=== PATIENT | female | born 1995 | race Caucasian/White ===

== ENCOUNTER 2017-01-10 16:55 | Emergency (ER) | payer OTHER ==
[2017-01-10] MEDS ORDERED: IOPAMIDOL 370 (76%) IV.SOLN 150 ML IV ONE (16:56)
[2017-01-10] MEDS ORDERED: ONDANSETRON 4 MG/2ML 2 ML VIAL ONE (17:49)
[2017-01-10] MEDS ORDERED: SODIUM CHLORIDE 0.9% 1,000 ML ONE (17:49)
[2017-01-10 17:50] LABS: SPECIFIC GRAVITY 1.025 (1.001-1.030); URINE BILIRUBIN NEGATIVE (NEGATIVE); URINE BLOOD NEGATIVE (NEGATIVE); URINE GLUCOSE (UA) NEGATIVE (NEGATIVE); URINE LEUKOCYTE ESTERASE NEGATIVE (NEGATIVE); URINE NITRITE NEGATIVE (NEGATIVE); URINE PROTEIN NEGATIVE (NEGATIVE); URINE UROBILINOGEN NORMAL (0-1 mg/dl)
[2017-01-10] MEDS ORDERED: MORPHINE SULFATE 4 MG/ML SYRINGE ONE (17:50)
[2017-01-10] MEDS ORDERED: ACETAMINOPHEN 500 MG TABLET ONE (17:50)
[2017-01-10 17:55] LABS: HCG,QUALITATIVE URINE NEGATIVE; URINE APPEARANCE CLEAR; URINE COLOR YELLOW
[2017-01-10 18:16] LABS: ALB/GLOB RATIO 1.1 (>1.0); ALBUMIN 4.2 gm/dL (3.5-5.7); CALCIUM 9.2 mg/dL (8.6-10.3)
[2017-01-10 18:22] LABS: INR 0.95
[2017-01-10 18:28] LABS: ABSOLUTE NEUTROPHIL COUNT 6.4 K/mm3 (1.8-7.7); BASO # 0.1 K/mm3 (0.0-0.2); BASO % 0.7 % (0.2-1.0); EOS # 0.2 (0.0-0.5); EOS % 1.6 % (0.9-2.9); HEMATOCRIT 43.4 % (37.0-47.0); HEMOGLOBIN 14.7 gm/l (12.0-16.0); IMM NEUT% 0.4 % (0-1); LYMPH # 2.9 (1.0-4.8); LYMPH % 28.2 % (15-45); MEAN CELL VOLUME 89.7 fl (81.0-99.0); MEAN CORPUSCULAR HEMOGLOBIN 30.4 pg (27.0-31.0); MEAN CORPUSCULAR HGB CONC 33.9 g/dl (33.0-37.0); MEAN PLATELET VOLUME 8.9 fl (7.4-10.4); MONO # 0.7 (0.0-0.8); MONO % 6.9 % (4-12); NEUT % 62.2 % (43-75); PLATELET COUNT 375 K/mm3 (130-400); RED CELL DISTRIBUTION WIDTH 12.3 % (11.5-14.5)
--- NOTE | 2017-01-10 18:37 | CT ---
CT ABDOMEN AND PELVIS WITH CONTRAST HISTORY: Right lower quadrant pain. TECHNIQUE: Following intravenous administration of 1 25 mL Isovue-370, contiguous axial images were acquired from the lung bases to the ischial tuberosities. Oral contrast was not administered. COMPARISON:None. FINDINGS: LUNG BASES: No gross airspace consolidation or pleural effusion. LIVER: No focal lesion. Minor fatty infiltration along the falciform ligament SPLEEN: No focal lesion. PANCREAS: No focal lesion. ADRENAL GLANDS: No mass effect. KIDNEYS: No focal lesion. No collecting system dilatation. GALLBLADDER: Present. BOWEL: Moderate fecal loading. Limited assessment of the distal colon due to decompression. No abnormal small bowel dilatation. Scattered bowel wall enhancement. APPENDIX: Normal gas-filled appendix. PELVIC ORGANS: Nondominant complex cystic lesion of the right ovary, 1.9 cm in size. Suggested left adnexal cyst, 2.2 cm in size. FREE FLUID: No gross free fluid identified. ABDOMINOPELVIC LYMPH NODES: Increased number of mesenteric lymph nodes, most notable at the right lower quadrant. ABDOMINAL AORTA: Normal caliber. OSSEOUS STRUCTURES: No grossly destructive lesions. ANTERIOR ABDOMINAL WALL: Fatty umbilical hernia. IMPRESSION: 1. Normal appendix. Nonobstructive appearance of bowel. 2. Increased number of mesenteric lymph nodes most notable at the right lower quadrant, suspicious for mesenteric adenitis. Nonspecific enhancement of bowel loops may indicate enteritis. 3. No free fluid. 4. Small cystic adnexal lesions, consider sonography if there is associated pelvic pain. 5. Small fatty umbilical hernia. Results were electronically transmitted to the electronic medical record at 01/10/2017 1833 hours.
[2017-01-10] MEDS ORDERED: METRONIDAZOLE 500 MG TABLET ONE (18:55)
[2017-01-10] MEDS ORDERED: SULFAMETHOXAZOLE 800 MG/TRIMETHOPRIM 160 MG TABLET ONE (18:55)
== END 2017-01-10 19:36 | disposition home or self-care (01) ==
LOC: ED 16:55
DX: I88.0 Nonspecific mesenteric lymphadenitis (principal); R10.31 Right lower quadrant pain; R11.2 Nausea with vomiting, unspecified; N91.2 Amenorrhea, unspecified

== ENCOUNTER 2017-02-10 14:28 | Emergency (ER) | payer OTHER ==
[2017-02-10 15:02] LABS: URINE BILIRUBIN NEGATIVE (NEGATIVE); URINE BLOOD NEGATIVE (NEGATIVE); URINE GLUCOSE (UA) NEGATIVE (NEGATIVE); URINE LEUKOCYTE ESTERASE NEGATIVE (NEGATIVE); URINE NITRITE NEGATIVE (NEGATIVE); URINE PROTEIN NEGATIVE (NEGATIVE); URINE UROBILINOGEN NORMAL (0-1 mg/dl)
[2017-02-10 15:04] LABS: HCG,QUALITATIVE URINE NEGATIVE; URINE APPEARANCE CLEAR; URINE COLOR YELLOW
[2017-02-10] MEDS ORDERED: ONDANSETRON 4 MG/2ML 2 ML VIAL ONE (15:51)
[2017-02-10] MEDS ORDERED: HYDROMORPHONE HCL 1 MG/ML SYRINGE ONE ×2 (15:52→18:27)
[2017-02-10 16:12] LABS: ABSOLUTE NEUTROPHIL COUNT 7.1 K/mm3 (1.8-7.7); BASO # 0.1 K/mm3 (0.0-0.2); BASO % 0.9 % (0.2-1.0); EOS # 0.3 (0.0-0.5); EOS % 2.4 % (0.9-2.9); HEMATOCRIT 45.5 % (37.0-47.0); HEMOGLOBIN 15.3 gm/l (12.0-16.0); IMM NEUT% 0.4 % (0-1); LYMPH # 2.7 (1.0-4.8); LYMPH % 24.6 % (15-45); MEAN CORPUSCULAR HEMOGLOBIN 29.9 pg (27.0-31.0); MEAN CORPUSCULAR HGB CONC 33.6 g/dl (33.0-37.0); MEAN PLATELET VOLUME 9.3 fl (7.4-10.4); MONO # 0.9 (0.0-0.8); MONO % 7.9 % (4-12); NEUT % 63.8 % (43-75); PLATELET COUNT 397 K/mm3 (130-400); RED CELL DISTRIBUTION WIDTH 12.3 % (11.5-14.5)
[2017-02-10 16:18] LABS: ALB/GLOB RATIO 1.2 (>1.0); ALBUMIN 4.3 gm/dL (3.5-5.7); CALCIUM 9.9 mg/dL (8.6-10.3)
--- NOTE | 2017-02-10 18:52 | US ---
PELVIC COMPLETE, TRANSVAGINAL ECHOGRAPHY: 02/10/2017 4:25 PM CLINICAL HISTORY: Left lower quadrant pain.. Comparison: CT abdomen and pelvis 01/10/2017 STUDY: Transabdominal and transvaginal imaging was performed with multiple grayscale, color-flow and duplex Doppler imaging. FINDINGS: Uterus: Orientation: Anteverted. Size: 8.6 x 3.6 x 5.3 cm Mass: None. Cervix: Normal. Endometrium: Endometrial thickness measures 13 mm. Ovaries: Size: Right measures 3.7 x 2.6 x 2.6 cm; left measures 3.7 x 2.4 x 2.8 cm. Arterial and venous blood flow: right ovary: Present, left ovary: Present Mass: A hypoechoic region is noted within the left ovary measuring 1.3 x 1.1 x 1.5 cm. Findings may relate to collapsing cyst or follicle. Adnexa: Mass: Small amount of free fluid. Cul-de-sac: Small amount of free fluid. IMPRESSION: Possible collapsing follicle or cyst is noted on the left. Small amount of free fluid is noted adjacent to the adnexa and within the cul-de-sac. Exam is otherwise unremarkable. Follow-up as clinically warranted. Preliminary report was provided by Yoanna at approximately 1833 hours on 02/10/2017.
--- NOTE | 2017-02-10 18:53 | US ---
RENALS/BLADDER: 02/10/2017 4:43 PM CLINICAL HISTORY: Left lower quadrant and flank pain. Question of renal calculus. STUDY: Renal ultrasound. COMPARISON: CT abdomen pelvis 01/10/2017 FINDINGS: Kidney: Size: Right measures 10.5 cm; left measures 10.5 cm. Echogenicity: Normal. Parenchymal thickness: Right: 0.8 cm, Left: 0.8 cm Resistive index: Right: 0.54, Left: 0.56 Contour: Smooth. Pelvicalyceal dilatation: None. Calculus: None. Mass: None. Bladder: 0 mL post void residual. Bilateral urinary jets are identified. IMPRESSION: Unremarkable renal ultrasound. Follow-up as clinically warranted. Preliminary report was provided by PEER at approximately 1833 hours on 02/10/2017.
== END 2017-02-10 19:17 | disposition home or self-care (01) ==
LOC: ED 14:28
DX: N83.12 Corpus luteum cyst of left ovary (principal); R11.0 Nausea
CPT/HCPCS: 81025; 85025; 80053; 81003; 76856; 76770; 76830; 96375; 96376; 99284; 96374; 99283; J1170 ×2; J2405